=== PATIENT | female | born 1990 | race Caucasian/White ===

== ENCOUNTER 2019-10-01 20:51 | Emergency (ER) | payer SELFPAY ==
[2019-10-01 21:04] VITALS: BP 98/58; PULSE 69; RESP 16; TEMP 36.6; O2SAT 99; BMI 21.1
--- NOTE | 2019-10-01 21:15 | W.ED.DIZZY ---
HPI - Dizziness General: Chief Complaint: Dizziness Stated Complaint: dizziness Time Seen by Provider: 10/01/19 21:15 History of Present Illness: HPI Narrative: Patient is a 29-year-old female who comes to the ED with dizziness and muscle cramping and soreness. Patient says symptoms started couple hours ago. 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 Patient she states she has not drank much fluids at all in the past 2 days and has been working long hours. She said today while she was working she started getting dizzy and started feeling muscle cramps. She describes the dizziness as spinning sensation. Patient also has a generalized headache that started after onset of dizziness. She denies any fever, chills, nausea, vomiting, abdominal pain, diarrhea, dysuria or hematuria. She says that she feels like she is having a lot of muscle cramps all throughout her body. MD elicited complaint: dizziness Associated symptoms: Reports headache(s); Denies chest pain, chills, nausea, nasal congestion, palpitations or vomiting Associated neuro symptoms: Deny numbness in extremities Review of Systems Const: Denies: fever, chills or fatigue Eyes: Denies: change in vision or eye discomfort ENMT: Denies: throat pain, painful swallowing, nasal discharge or nasal congestion Card: Denies: chest pain, palpitations, edema, swelling of feet/ankles, shortness of breath on exertion or shortness of breath when lying down Resp: Denies: shortness of breath, productive cough or non-productive cough GI: Denies: abdominal pain, nausea, vomiting, diarrhea, constipation or blood in stool : Denies: flank pain, painful urination or blood in urine Musc: Reports: muscle cramps; Denies: neck pain, back pain or extremity swelling Skin/Breast: Denies: rash or new lesion Neuro: Reports: headache and dizziness; Denies: numbness in extremities or weakness in extremities PFSH ED PFSH: Social History Smoking and tobacco status: never smoked Physical Exam Const: COMMON NORMALS: oriented x3 and alert GENERAL APPEARANCE: ill appearing (Patient was in a dark room and had an extra shirt she was holding over her eyes.); not comfortable HENMT: COMMON NORMALS: normocephalic HEAD & SCALP: normocephalic MOUTH: moist mucous membranes abnormal (moderate) Details: parched THROAT: posterior oropharynx normal and uvula midline Eye: COMMON NORMALS: PERRL and EOMs intact bilaterally PUPIL: Yes PERRL EOM: No nystagmus DIRECT OPHTHALMOSCOPY: No photophobia Neck/C-Spine: COMMON NORMALS: supple GENERAL: Yes normal visual inspection Resp: COMMON NORMALS: normal respiratory effort, no retractions, no use of accessory muscles and clear to auscultation bilaterally AUSCULTATION: clear to auscultation bilaterally Cardio: COMMON NORMALS: regular rate, regular rhythm, S1 normal heart sound, S2 normal heart sound, no gallops, no clicks, no murmurs and peripheral pulses 2+ throughout RATE: regular rate RHYTHM: regular rhythm HEART SOUNDS: S1 normal and S2 normal PERIPHERAL PULSES: pulses 2+ throughout GI: COMMON NORMALS: normal to inspection, nondistended, normoactive bowel sounds, soft to palpation, non-tender and no masses PALPATION: Yes soft : COMMON NORMALS: Yes no CVA tenderness BLADDER/KIDNEY EXAM: Yes no CVA tenderness Back/Pelvis: COMMON NORMALS: no CVA tenderness Extremity: COMMON NORMALS: normal to inspection, normal capillary refill and no pedal edema Neuro: COMMON NORMALS: oriented x3, CN's II-XII intact bilaterally, moves all extremities, no focal motor deficits and no sensory deficits noted SENSORIUM/ORIENTATION: Yes alert SENSORY EXAM: Yes extremities (intact) MOTOR EXAM: strength 5/5 throughout Skin: COMMON NORMALS: no rashes or lesions noted GENERAL SKIN EXAM: no rashes or lesions noted and dry skin Course Reevaluation(s): Reevaluation #1: Patient says after IV fluids her muscle cramps and dizziness is improving. Patient still has a headache and she rates it an 8 out of 10. I told patient I will give her some IV Toradol to help with headache. Time: 00:17 Vital Signs: Vital signs: Vital Signs Temperature 97.8 F 10/01/19 21:04 Pulse Rate 62 10/02/19 01:53 Respiratory Rate 17 10/02/19 01:53 Blood Pressure 112/74 10/02/19 01:53 Pulse Oximetry 98 10/02/19 01:53 MDM - Dizziness MDM Narrative: Medical decision making narrative: Patient is a 29-year-old female who comes to the ED with dizziness and muscle cramps and a headache. 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 Physical exam was remarkable for some dry mucous membranes. Neurological exam was normal. CBC was remarkable for an elevated blood cell count of 12.6 and CMP and urinanalysis normal. hCG negative. CT of head showed no acute findings. EKG showed sinus bradycardia with [address] segment elevation or depression seen. Patient was given 2 L of IV fluids, meclizine and Toradol. After treatment patient's headache, muscle cramps and dizziness greatly improved. Patient felt well and was ready to be discharged. Patient was diagnosed with dehydration symptoms and a headache. She was told to follow-up with her PCP in 7 to 10 days for reevaluation. I encouraged her to drink plenty of fluids to stay hydrated especially when outside working. Patient understood and agreed with plan. Lab Data: Attestation: I reviewed the patient's lab results. Labs: Lab Results 10/01/19 10/01/19 10/01/19 Range/Units 21:43 21:43 21:43 WBC 12.6 H (4.0-10.0) 10^3/ uL RBC 3.84 L (4.1-5.3) 10^6/u L Hgb 11.2 L (11.5-15.3) g/dL Hct 34.4 L (37.0-47.0) % MCV 89.6 (81-99) fL MCH 29.2 (28.0-34.0) pg MCHC 32.6 (30.0-36.0) g/dL RDW 13.0 (12.1-15.1) % Plt Count 350 (130-400) 10^3/c mm MPV 9.5 (7.4-10.4) fL Neut % (Auto) 79.4 % Lymph % (Auto) 13.8 % [place] % (Auto) 5.7 % Eos % (Auto) 0.2 % Baso % (Auto) 0.5 % Neut # (Auto) 10.0 H (1.8-7.7) 10^3/u L Lymph # (Auto) 1.7 (0.8-4.8) 10^3/u L [place] # (Auto) 0.7 (0.2-0.9) 10^3/u L Eos # (Auto) 0.0 (0.0-0.8) 10^3/u L Baso # (Auto) 0.1 (0.0-0.1) 10^3/u L Nucleated RBC % (a uto) 0 % Nucleated RBCs # 0.0 /100WBC Sodium 140 (136-145) mmol/L Potassium 3.4 L (3.5-5.1) mmol/L Chloride 106 (98-107) mmol/L Carbon Dioxide 22 (22-29) mmol/L Anion Gap 15.4 (5-19) BUN 13 (6-20) mg/dL Creatinine 0.8 (0.5-0.9) mg/dL GFR Calculation 85.4 L (90-130) mL/min Glucose 98 (65-115) mg/dL POC Glucose (70-110) mg/dL Calculated Osmolal ity 286 (285-295) mOsm/k g Calcium 9.6 (8.5-10.5) mg/dL Total Bilirubin 0.3 (0.15-1.2) mg/dL AST 20 (0-32) U/L ALT 12 (0-33) U/L Alkaline Phosphata se 102 (35-105) IU/L Total Protein 7.7 (6.6-8.7) g/dL Albumin 4.4 (3.5-5.2) g/dL Globulin 3.3 (1.3-4.6) g/dL HCG, Qual Negative (Negative) Urine Color (Yellow) Urine Appearance (CLEAR) Urine pH (5-7) Ur Specific Gravit y (1.005-1.030) Urine Protein (Negative) Urine Glucose (UA) (Normal) Urine Ketones (Negative) Urine Blood (Negative) Urine Nitrate (Negative) Urine Bilirubin (NEGATIVE) Urine Urobilinogen (Negative) mg/dL Ur Leukocyte Marzena ase (Negative) Urine RBC (0-2) /hpf Urine WBC (0-5) /hpf Ur Squamous Epith Cells (0-5) Urine Bacteria (NONE) 10/01/19 10/01/19 Range/Units 21:45 22:03 WBC (4.0-10.0) 10^3/ uL RBC (4.1-5.3) 10^6/u L Hgb (11.5-15.3) g/dL Hct (37.0-47.0) % MCV (81-99) fL MCH (28.0-34.0) pg MCHC (30.0-36.0) g/dL RDW (12.1-15.1) % Plt Count (130-400) 10^3/c mm MPV (7.4-10.4) fL Neut % (Auto) % Lymph % (Auto) % [place] % (Auto) % Eos % (Auto) % Baso % (Auto) % Neut # (Auto) (1.8-7.7) 10^3/u L Lymph # (Auto) (0.8-4.8) 10^3/u L [place] # (Auto) (0.2-0.9) 10^3/u L Eos # (Auto) (0.0-0.8) 10^3/u L Baso # (Auto) (0.0-0.1) 10^3/u L Nucleated RBC % (a uto) % Nucleated RBCs # /100WBC Sodium (136-145) mmol/L Potassium (3.5-5.1) mmol/L Chloride (98-107) mmol/L Carbon Dioxide (22-29) mmol/L Anion Gap (5-19) BUN (6-20) mg/dL Creatinine (0.5-0.9) mg/dL GFR Calculation (90-130) mL/min Glucose (65-115) mg/dL POC Glucose 101 (70-110) mg/dL Calculated Osmolal ity (285-295) mOsm/k g Calcium (8.5-10.5) mg/dL Total Bilirubin (0.15-1.2) mg/dL AST (0-32) U/L ALT (0-33) U/L Alkaline Phosphata se (35-105) IU/L Total Protein (6.6-8.7) g/dL Albumin (3.5-5.2) g/dL Globulin (1.3-4.6) g/dL HCG, Qual (Negative) Urine Color Yellow (Yellow) Urine Appearance Hazy A (CLEAR) Urine pH 8 H (5-7) Ur Specific Gravit y 1.010 (1.005-1.030) Urine Protein Neg (Negative) Urine Glucose (UA) Norm (Normal) Urine Ketones Negative (Negative) Urine Blood Neg (Negative) Urine Nitrate Negative (Negative) Urine Bilirubin Neg (NEGATIVE) Urine Urobilinogen Norm (Negative) mg/dL Ur Leukocyte Marzena ase Negative (Negative) Urine RBC None (0-2) /hpf Urine WBC None (0-5) /hpf Ur Squamous Epith Cells 5-10 H (0-5) Urine Bacteria Trace (NONE) Imaging Data^: CT Head: Attestation: I personally reviewed and interpreted this imaging study as follows: Radiologist's impression: [place] [address] CT Scan Report Signed Patient: Eva Huerta Unit #: [id number] : 1990 Age/Sex: 29 / F ADM Date: 10/01/19 Loc: ER Room/Bed: Attending Dr: Ordering Provider/Ordering MD: Fermin Vega Date of Service: 10/01/19 Procedure(s): CT head wo con* [id number] Accession Number(s): [id number] Report Number: [id number] PROCEDURE INFORMATION: Exam: CT Head Without Contrast Exam date and time: 10/01/2019 9:36 PM Age: 29 years old Clinical indication: Pain; Dizziness; Headache TECHNIQUE: Imaging protocol: Computed tomography of the head without contrast. Total DLP: 708.74 mGy-cm Radiation optimization: All CT scans at this facility use at least one of these dose optimization techniques: automated exposure control; mA and/or kV adjustment per patient size (includes targeted exams where dose is matched to clinical indication); or iterative reconstruction. COMPARISON: No relevant prior studies available. FINDINGS: Brain: Normal. No hemorrhage. Unremarkable white matter. No mass effect. Ventricles: Normal. No ventriculomegaly. Bones/joints: Unremarkable. No acute fracture. Sinuses: Visualized sinuses are unremarkable. No fluid levels. Mastoid air cells: Visualized mastoid air cells are well aerated. Soft tissues: Unremarkable. CT/CT head wo con* [id number] IMPRESSION: No acute intracranial abnormality. Radiation Dose CTDIVOL = (mGy): DLP = 708.74 (mGy-cm) Dictated By: Elmira Rodriguez Signed By: Elmira Rodriguez Signed Date/Time: 10/01/192206 DD/ 05 EKG Data^: EKG 1: Attestation: I personally reviewed and interpreted this EKG as follows: EKG interpretation date: 10/01/19 Interpretation: Sinus bradycardia, 56 bpm, P waves present, no ST segment elevation or depression seen. Computer generated interpretation: Sinus bradycardia, borderline right axis deviation. Discharge Plan Discharge Patient Disposition: Home, Self-Care Clinical Impression: Dehydration symptoms Headache Qualifiers: Headache type: unspecified Headache chronicity pattern: acute headache Intractability: not intractable Qualified Code(s): R51 - Headache Condition: Stable Discharge Orders: Discharge Order (Routine); Ordered 10/02/19 Ordered By: Fermin Vega Discharge Diet: Regular Discharge Activity: Increase activity as tolerated Patient Instructions: Dehydration - Adult, Acute Headache (ED) Activity Restrictions/Additional Instructions: Follow-up with your PCP in 5 to 7 days for reevaluation. Make sure you are drinking plenty of fluids and staying hydrated especially when you are outside working and doing physical activity. Take Tylenol or ibuprofen for any headaches. Discharge Date/Time: 10/02/19 01:56 Coding Level of Care Code ED [place] for [facility] Fwd Exam Comprehensive
--- NOTE | 2019-10-01 21:34 | CTR_ITS ---
PROCEDURE INFORMATION: Exam: CT Head Without Contrast Exam date and time: 10/01/2019 9:36 PM Age: 29 years old Clinical indication: Pain; Dizziness; Headache TECHNIQUE: Imaging protocol: Computed tomography of the head without contrast. Total DLP: 708.74 mGy-cm Radiation optimization: All CT scans at this facility use at least one of these dose optimization techniques: automated exposure control; mA and/or kV adjustment per patient size (includes targeted exams where dose is matched to clinical indication); or iterative reconstruction. COMPARISON: No relevant prior studies available. FINDINGS: Brain: Normal. No hemorrhage. Unremarkable white matter. No mass effect. Ventricles: Normal. No ventriculomegaly. Bones/joints: Unremarkable. No acute fracture. Sinuses: Visualized sinuses are unremarkable. No fluid levels. Mastoid air cells: Visualized mastoid air cells are well aerated. Soft tissues: Unremarkable. CT/CT head wo con* [id number] IMPRESSION: No acute intracranial abnormality. Radiation Dose CTDIVOL = (mGy): DLP = 708.74 (mGy-cm)
--- NOTE | 2019-10-01 21:36 | ECG_ITS ---
Measurements Intervals [place] Rate: 56 P: 64 MO: 169 QRS: 93 QRSD: 86 T: 64 QT: 465 QTc: 449 SINUS BRADYCARDIA BORDERLINE RIGHT AXIS DEVIATION [QRS AXIS > 90] No previous ECG available for comparison Electronically Signed On 10-02-2019 14:59:22 CDT by Tonya Sarah M.D. [email or web address]
--- NOTE | 2019-10-01 22:04 | PC.NURSE ---
Patient's blood glucose is 101
[2019-10-01 22:07] LABS: Glucose Point of Care 101 mg/dL (70-110)
[2019-10-01 22:10] LABS: Basophils # 0.1 10^3/uL (0.0-0.1); Basophils % 0.5 %; Eosinophils % 0.2 %; Hematocrit 34.4 % (37.0-47.0); Hemoglobin 11.2 g/dL (11.5-15.3); Lymphocytes # 1.7 10^3/uL (0.8-4.8); Lymphocytes % 13.8 %; Mean Corpuscular HGB Conc 32.6 g/dL (30.0-36.0); Mean Corpuscular Hemoglobin 29.2 pg (28.0-34.0); Mean Corpuscular Volume 89.6 fL (81-99); Mean Platelet Volume 9.5 fL (7.4-10.4); Monocytes # 0.7 10^3/uL (0.2-0.9); Monocytes % 5.7 %; Neutrophils % 79.4 %; Nucleated Red Blood Cells % 0 %; Platelet Count 350 10^3/cmm (130-400); Red Blood Count 3.84 10^6/uL (4.1-5.3); White Blood Count 12.6 10^3/uL (4.0-10.0)
[2019-10-01] MEDS: sodium chloride 0.9% 1,000 ML 999 ML IV (22:10)
[2019-10-01 23:04] LABS: Alanine Aminotransferase 12 U/L (0-33); Albumin Level 4.4 g/dL (3.5-5.2); Alkaline Phosphatase 102 IU/L (35-105); Anion Gap 15.4 (5-19); Aspartate Amino Transferase 20 U/L (0-32); Blood Urea Nitrogen 13 mg/dL (6-20); Calcium 9.6 mg/dL (8.5-10.5); Carbon Dioxide 22 mmol/L (22-29); Chloride 106 mmol/L (98-107); Globulin 3.3 g/dL (1.3-4.6); Glomerular Filtration Rate 85.4 mL/min (90-130); Glucose 98 mg/dL (65-115); Osmolality Calculated 286 mOsm/kg (285-295); Potassium 3.4 mmol/L (3.5-5.1); Sodium 140 mmol/L (136-145); Total Bilirubin 0.3 mg/dL (0.15-1.2); Total Protein 7.7 g/dL (6.6-8.7)
[2019-10-01 23:47] LABS: HCG, Serum Qual Negative (Negative)
[2019-10-01 23:49] LABS: Bilirubin Urine Neg (NEGATIVE); Blood Urine Neg (Negative); Glucose Urine UA Norm (Normal); Ketones Urine Negative (Negative); Leukocyte Esterase Urine Negative (Negative); Nitrate Urine Negative (Negative); Protein Urine Neg (Negative); Urine Appearance Hazy (CLEAR); Urine Color Yellow (Yellow); Urobilinogen Urine Norm (Negative); pH Urine 8 (5-7)
[2019-10-02] MEDS: sodium chloride 0.9% 1,000 ML 999 ML IV
[2019-10-02] MEDS: meclizine 25 mg tablet 50 MG PO (00:01)
[2019-10-02 00:03] LABS: Add Urine Culture? No
[2019-10-02 00:05] LABS: Bacteria Urine TRACE
[2019-10-02] MEDS: ketorolac 30 mg/mL INJ IVP (00:27)
[2019-10-02 01:18] VITALS: BP 116/68; PULSE 58; RESP 16
[2019-10-02 01:53] VITALS: BP 112/74; PULSE 62; RESP 17; O2SAT 98
== END 2019-10-02 01:56 | disposition home or self-care (01) ==
PROVIDERS: Emergency Provider Physician Assistant
DX: R51 Headache (principal); E86.0 Dehydration
CPT/HCPCS: 12345; 36416; 70450; 80053; 81001; 82962; 84703; 85025; 93005; 96360; 96361; 96374; 99283; 99284; A9270; J1885; J7030; J8597

== ENCOUNTER 2019-10-11 12:59 | Emergency (ER) | payer SELFPAY ==
[2019-10-11 13:00] VITALS: BP 109/71; PULSE 66; RESP 20; TEMP 36.4; O2SAT 98; BMI 21.1
--- NOTE | 2019-10-11 13:03 | XR_ITS ---
WS: [id number] XR chest 1V portable [id number] REASON FOR EXAM: cp FINDINGS: The lung bowles are well aerated. No pneumothorax, pneumonia, pleural effusion, or pulmonar y edema. The hilum and apices are normal. Mediastinal interfaces are normal. No osseous abnormalities. XR/XR chest 1V portable [id number] IMPRESSION: Negative chest for acute pathology.
--- NOTE | 2019-10-11 13:04 | ECG_ITS ---
Measurements Intervals [place] Rate: 58 P: 65 UT: 170 QRS: 93 QRSD: 86 T: 55 QT: 450 QTc: 444 SINUS BRADYCARDIA BORDERLINE RIGHT AXIS DEVIATION [QRS AXIS > 90] Compared to ECG 10/01/2019 21:52:20 No significant changes Electronically Signed On 10-11-2019 18:24:22 CDT by Anders Bower M.D. [email or web address]
--- NOTE | 2019-10-11 13:05 | W.ED.PSYCH ---
HPI - Psych General: Chief Complaint: Anxiety Stated Complaint: ANXIETY Time Seen by Provider: 10/11/19 12:59 Source: patient and EMS Mode of arrival: EMS Limitations: no limitations History of Present Illness: HPI Narrative: 29-year-old female is here by EMS states she has been under a lot of stress lately states she feels like she is having anxiety attack. Patient is hyperventilating and is quite anxious. Patient given Haldol in route. She states she feels sick to her stomach and nauseous. Denies any worsening improving factors. She denies any suicidal or homicidal ideations. Associated symptoms: Deny depression Review of Systems Const: Denies: fever, chills, body aches or change in appetite Eyes: Denies: blurry vision or eye discomfort ENMT: Denies: throat pain or dental pain Card: Denies: chest pain Resp: Denies: shortness of breath GI: Denies: abdominal pain, nausea, vomiting or diarrhea : Denies: painful urination Musc: Denies: neck pain or back pain Skin/Breast: Denies: rash Neuro: Denies: headache Psych: Reports: anxiety; Denies: depression [place]/Lymph: Denies: easy bruising All/Imm: Denies: hives PFSH ED PFSH: Social History Smoking and tobacco status: never smoked Current gender identity: Female Physical Exam Const: COMMON NORMALS: no apparent distress, oriented x3 and healthy appearing HENMT: COMMON NORMALS: normocephalic and head/scalp atraumatic HEAD & SCALP: normocephalic and atraumatic Eye: COMMON NORMALS: PERRL and EOMs intact bilaterally PUPIL: Yes PERRL Neck/C-Spine: COMMON NORMALS: full ROM and supple Chest: COMMONS NORMALS: inspection of chest normal and palpation of chest normal Resp: COMMON NORMALS: normal respiratory effort, no retractions, no use of accessory muscles and clear to auscultation bilaterally AUSCULTATION: clear to auscultation bilaterally Cardio: COMMON NORMALS: regular rate, regular rhythm and no murmurs RATE: regular rate RHYTHM: regular rhythm GI: COMMON NORMALS: normal to inspection, nondistended, normoactive bowel sounds, soft to palpation, non-tender and no masses PALPATION: Yes soft Extremity: COMMON NORMALS: normal to inspection and full ROM Neuro: COMMON NORMALS: oriented x3, moves all extremities and no focal motor deficits Psych: COMMON NORMALS: mental status grossly normal, thought process normal and cooperative MOOD & AFFECT: Yes anxious THOUGHT PROCESS: normal thought process Skin: COMMON NORMALS: no rashes or lesions noted and no wounds GENERAL SKIN EXAM: no rashes or lesions noted MDM - Psych MDM Narrative: Medical decision making narrative: Patient presents with anxiety attack. Patient's lab work is well-appearing and she is well-appearing here. She is not suicidal homicidal patient is stable for discharge. Lab Data: Labs: Lab Results 10/11/19 10/11/19 10/11/19 Range/Units 13:17 13:17 13:17 WBC 8.5 (4.0-10.0) 10^3/ uL RBC 4.00 L (4.1-5.3) 10^6/u L Hgb 11.8 (11.5-15.3) g/dL Hct 36.0 L (37.0-47.0) % MCV 90.0 (81-99) fL MCH 29.5 (28.0-34.0) pg MCHC 32.8 (30.0-36.0) g/dL RDW 13.0 (12.1-15.1) % Plt Count 322 (130-400) 10^3/c mm MPV 9.1 (7.4-10.4) fL Neut % (Auto) 81.8 % Lymph % (Auto) 13.3 % [place] % (Auto) 3.9 % Eos % (Auto) 0.2 % Baso % (Auto) 0.4 % Neut # (Auto) 6.9 (1.8-7.7) 10^3/u L Lymph # (Auto) 1.1 (0.8-4.8) 10^3/u L [place] # (Auto) 0.3 (0.2-0.9) 10^3/u L Eos # (Auto) 0.0 (0.0-0.8) 10^3/u L Baso # (Auto) 0.0 (0.0-0.1) 10^3/u L Nucleated RBC % (a uto) 0 % Nucleated RBCs # 0.0 /100WBC Sodium 137 (136-145) mmol/L Potassium 3.4 L (3.5-5.1) mmol/L Chloride 104 (98-107) mmol/L Glucose 100 (65-115) mg/dL AST 16 (0-32) U/L ALT 13 (0-33) U/L Alkaline Phosphata se 86 (35-105) IU/L Total Protein 8.0 (6.6-8.7) g/dL Albumin 4.5 (3.5-5.2) g/dL Globulin 3.5 (1.3-4.6) g/dL HCG, Qual Negative (Negative) Imaging Data^: CXR: Radiologist's impression: [address] [address] XRay Report Signed Patient: Eva Huerta Unit #: [id number] : 1990 Age/Sex: 29 / F ADM Date: 10/11/19 Loc: ER Room/Bed: Attending Dr: Ordering Provider/Ordering MD: Mary Perales MD Date of Service: 10/11/19 Procedure(s): XR chest 1V portable [id number] Accession Number(s): [id number] Report Number: [id number] WS: [id number] XR chest 1V portable [id number] REASON FOR EXAM: cp FINDINGS: The lung bowles are well aerated. No pneumothorax, pneumonia, pleural effusion, or pulmonary edema. The hilum and apices are normal. Mediastinal interfaces are normal. No osseous abnormalities. XR/XR chest 1V portable [id number] IMPRESSION: Negative chest for acute pathology. EKG Data^: EKG 1: Attestation: I personally reviewed and interpreted this EKG as follows: EKG interpretation date: 10/11/19 EKG interpretation time: 13:31 Interpretation: sinus krystyna hr [address] or t wave abnormalities qrs 86 qtc 447 Discharge Plan Discharge Patient Disposition: Home, Self-Care Clinical Impression: Acute anxiety Condition: Stable Prescriptions: No Action alprazolam [Xanax] 2 mg tablet 2 mg PO DAILY RF: 0 Advil 200 mg Tablet 200 - 800 mg PO PRN RF: 0 Tylenol 325 - 650 mg PO PRN RF: 0 Discharge Orders: Discharge Order (Routine); Ordered 10/11/19 Ordered By: Mary Perales Discharge Diet: Advance as tolerated Discharge Activity: Resume usual activity Patient Instructions: Anxiety (ED) Coding Level of Care Code ED Staffing Consultant for Ben Fwd Exam Comprehensive
[2019-10-11] MEDS: LORazepam 2 mg/mL INJ 1 mL 1 MG IVP (13:35)
[2019-10-11 13:36] LABS: Basophils % 0.4 %; Eosinophils % 0.2 %; Hemoglobin 11.8 g/dL (11.5-15.3); Lymphocytes # 1.1 10^3/uL (0.8-4.8); Lymphocytes % 13.3 %; Mean Corpuscular HGB Conc 32.8 g/dL (30.0-36.0); Mean Corpuscular Hemoglobin 29.5 pg (28.0-34.0); Mean Platelet Volume 9.1 fL (7.4-10.4); Monocytes # 0.3 10^3/uL (0.2-0.9); Monocytes % 3.9 %; Neutrophils # 6.9 10^3/uL (1.8-7.7); Neutrophils % 81.8 %; Nucleated Red Blood Cells % 0 %; Platelet Count 322 10^3/cmm (130-400); White Blood Count 8.5 10^3/uL (4.0-10.0)
[2019-10-11] MEDS: sodium chloride 0.9% 1,000 ML 999 ML IV (13:36)
[2019-10-11 13:52] LABS: HCG, Serum Qual Negative (Negative)
[2019-10-11 13:59] LABS: Alanine Aminotransferase 13 U/L (0-33); Albumin Level 4.5 g/dL (3.5-5.2); Alkaline Phosphatase 86 IU/L (35-105); Aspartate Amino Transferase 16 U/L (0-32); Chloride 104 mmol/L (98-107); Globulin 3.5 g/dL (1.3-4.6); Glucose 100 mg/dL (65-115); Potassium 3.4 mmol/L (3.5-5.1); Sodium 137 mmol/L (136-145)
[2019-10-11 14:45] LABS: Anion Gap 16.4 (5-19); Blood Urea Nitrogen 12 mg/dL (6-20); Calcium 9.3 mg/dL (8.5-10.5); Carbon Dioxide 20 mmol/L (22-29); Glomerular Filtration Rate 99.6 mL/min (90-130); Osmolality Calculated 280 mOsm/kg (285-295); Thyroid Stimulating Hormone 1.58 uIU/mL (0.27-4.20); Total Bilirubin 0.4 mg/dL (0.15-1.2)
[2019-10-11 15:51] VITALS: BP 109/71; PULSE 57; RESP 15; O2SAT 97
[2019-10-11 16:17] LABS: Amphetamines Screen Urine Negative (Negative); Barbiturates Screen Urine Negative (Negative); Benzodiazepines Screen Urine Positive (Negative); Cocaine Screen Urine Negative (Negative); Opiate Screen Urine Negative (Negative); PCP Screen Urine Negative (Negative); THC Screen Urine Positive (Negative)
== END 2019-10-11 15:51 | disposition home or self-care (01) ==
PROVIDERS: Emergency Provider Emergency Medicine
DX: F41.9 Anxiety disorder, unspecified (principal)
CPT/HCPCS: 12345; 71045; 80053; 80306; 84443; 84703; 85025; 93005; 96361; 96374; 96375; 99283; 99284; J2060; J7030